=== PATIENT | female | born 1945 | race Two or more races ===

== ENCOUNTER 2017-10-19 10:30 | Inpatient (IN) | payer OTHER ==
[~2017-10-19] VITALS: Ht 165.1 cm; Wt 82.6 kg
[2017-10-22] MEDS ORDERED: CATAFLAN PO (14:33)
[2017-10-22] MEDS ORDERED: AVAPRO300 MG PO (14:33)
[2017-10-22] MEDS ORDERED: MOBIC7.5 M1 PO (14:33)
[2017-10-22] MEDS ORDERED: NORVASC10 MG PO (14:34)
== END 2017-10-29 17:03 | DRG 470 ==
LOC: O/R 10-27 06:08 → SURG 10-27 06:08 → SURH 10-27 10:21 → SURG 10-27 10:30
PROVIDERS: Orthopaedic Surgery
PROC: 0SRD0J9 Replacement of Left Knee Joint with Synthetic Substitute, Cemented, Open Approach (ICD-10-PCS; principal; 2017-10-27 07:00)
DX: M17.12 Unilateral primary osteoarthritis, left knee (principal); D62 Acute posthemorrhagic anemia; M85.462 Solitary bone cyst, left tibia and fibula; I10 Essential (primary) hypertension